=== PATIENT | female | born 1940 | race Caucasian/White ===

== ENCOUNTER 2017-02-27 04:19 | Outpatient (CLI) | payer MEDICARE ==
[~2017-02-27 04:19] MED LIST: BAYER CHEWABLE81 MG PO; CARBIDOPA-LEVO1 EAC2 PO; COREG12.5 MG PO; ELAVIL10 MG PO; GLUCOPHAGE500 MG PO; INSPIRATION ELI1 PK1 INH; LASIX20 MG PO; NORVASC10 MG PO; NOVOLOG100 U/M1 SQ; PLAVIX75 MG PO; PRAVACHOL40 MG PO
[2017-02-27 05:44] LABS: BASOPHILS 0.3 % (0-2); EOSINOPHILS 4.5 % (0-7); HEMOGLOBIN 14.1 g/dL (12-16); IMMATURE GRANULOCYTES 0.3 % (0-5); LYMPHOCYTES 19.5 % (15-50); MCH 30.7 pg (26.0-34.0); MCHC 32.8 g/dL (31.0-37.0); MCV 93.7 fL (80.0-100.0); MEAN PLATELET VOLUME 10.1 fL (7.4-10.4); NEUTROPHILS 61.4 % (40-80); PLATELET COUNT 202 10x3/uL (130-400); RBC 4.59 10x6/uL (4.00-5.40); RDW 13.2 % (11.5-14.5); WBC 7.5 10x3/uL (4.8-10.8)
[2017-02-27 06:09] LABS: ALBUMIN 3.5 g/dL (3.4-5.0); ALKALINE PHOSPHATASE 130 U/L (46-116); ALT (SGPT) 8 U/L (10-68); BILIRUBIN - TOTAL 0.42 mg/dL (0.2-1.3); CALC OSMOLALITY 284 mosm/kg (275-300); CALCIUM 9.4 mg/dL (8.5-10.1); CARBON DIOXIDE 26.5 mmol/L (21.0-32.0); CHLORIDE - SERUM 107 mmol/L (98-107); GLUCOSE 121 mg/dL (74-106); POTASSIUM - SERUM 3.9 mmol/L (3.5-5.1); PROTEIN - SERUM 7.1 g/dL (6.4-8.2); SODIUM 141 mmol/L (136-145); UREA NITROGEN 21 mg/dL (7-18); eGFR NON AFRICAN AMERICAN 57 mL/min (90-120)
[2017-02-27 06:23] LABS: CHOL - HDL RATIO 3.9 ratio (2.3-4.1); CHOLESTEROL, TOTAL 164 mg/dL (0-200); CKMB 6.2 U/L (0.0-3.6); CREATINE KINASE 118 UL (21-215); HDL CHOLESTEROL 42 mg/dL (32-96); LDL CHOLESTEROL 103 mg/dL (0-100); LDL-HDL RATIO 2.5 ratio (1.5-3.5); THYROID STIMULATING HORMONE 3.27 uIU/mL (0.36-3.74); TRIGLYCERIDE 96 mg/dL (30-200)
[2017-02-27 06:25] LABS: TROPONIN-I 0.955 ng/mL (0.000-0.060)
[2017-02-27] MEDS ORDERED: LOTENSIN20 MG PO (09:19)
[2017-02-27] MEDS ORDERED: SYNTHROID50 MCG PO (09:19)
[2017-02-27] MEDS ORDERED: TRAVATAN Z2.5 ML EACH EYE (09:20)
[2017-02-27] MEDS ORDERED: ADVAIR 250/501 DISK INH (09:20)
[2017-02-27 12:32] LABS: TROPONIN-I 6.999 ng/mL (0.000-0.060)
[2017-02-27] MEDS ORDERED: PLAVIX75 MG PO (14:22)
== END 2017-02-27 18:30 | disposition home or self-care (01) ==
LOC: D.OPS 04:19 → D.M2 07:14
PROVIDERS: Emergency Medicine
DX: I25.119 Atherosclerotic heart disease of native coronary artery with unspecified angina pectoris (principal); T82.855A Stenosis of coronary artery stent, initial encounter; I70.212 Atherosclerosis of native arteries of extremities with intermittent claudication, left leg; Z01.812 Encounter for preprocedural laboratory examination
CPT/HCPCS: 93459; 37226; C9600